=== PATIENT | male | born 1975 | race African-American/Black ===

== ENCOUNTER 2017-11-24 11:19 | Emergency (ER) | payer OTHER ==
[~2017-11-24] VITALS: Ht 167.6 cm; Wt 70.4 kg
[2017-11-24 11:20] VITALS: BP 181/117
[2017-11-24] MEDS ORDERED: blood pressure PO (12:35)
== END 2017-11-24 13:34 | disposition home or self-care (01) ==
LOC: ED 13:33
DX: L26 Exfoliative dermatitis (principal)
CPT/HCPCS: 99283